=== PATIENT | female | born 1990 | race Two or more races ===

== ENCOUNTER 2021-11-16 01:13 | Emergency (ER) | payer OTHER ==
[~2021-11-16] VITALS: Ht 154.9 cm; Wt 99.8 kg
[2021-11-16] MEDS ORDERED: CLONIDINE1 EAC1 (01:34)
[2021-11-16] MEDS ORDERED: PROTONIX20 MG (01:34)
[2021-11-16] MEDS ORDERED: PEPCID AC20 MG PO (06:35)
[2021-11-16] MEDS ORDERED: ULTRAM50 MG PO (06:35)
[2021-11-16] MEDS ORDERED: DICY20TA PO (06:35)
== END 2021-11-16 06:42 | disposition home or self-care (01) ==
LOC: ER 01:13
DX: K80.20 Calculus of gallbladder without cholecystitis without obstruction (principal); R10.9 Unspecified abdominal pain; K76.0 Fatty (change of) liver, not elsewhere classified

== ENCOUNTER 2021-11-27 05:07 | Day surgery (SDC) | payer OTHER ==
[~2021-11-27 05:07] MED LIST: CLONAZEPAM1 MG PO; CLONIDINE1 EAC1; DICY20TA PO; FIORICET; LAMICTAL100 MG PO; PEPCID AC20 MG PO; PROTONIX20 MG; RESTORIL15 MG PO; ULTRAM50 MG PO
== END 2021-11-27 11:50 | disposition home or self-care (01) ==
LOC: CIR.AMB 05:07
PROVIDERS: ATTEND Specialist
DX: K80.10 Calculus of gallbladder with chronic cholecystitis without obstruction (principal)